=== PATIENT | female | born 1975 | race Asian ===

== ENCOUNTER 2024-03-07 11:52 | Emergency (ER) | payer OTHER ==
[2024-03-07 11:59] VITALS: RESP 16; TEMP 98.2; BMI 23.8
[2024-03-07] MEDS ORDERED: METOCLOPRAMIDE HCL INJECTION 10 MG/2 ML VIAL ONE (12:21)
[2024-03-07] MEDS ORDERED: IBUPROFEN 400 MG TABLET (FP) PO ONE (13:07)
[2024-03-07] MEDS: METOCLOPRAMIDE HCL INJECTION 10 MG/2 ML VIAL IVPUSH ONE (13:07)
[2024-03-07] MEDS: IBUPROFEN 400 MG TABLET (FP) PO ONE (13:09)
[2024-03-07 13:57] VITALS: BP 104/70; PULSE 72
== END 2024-03-07 14:22 | disposition home or self-care (01) ==
LOC: FER 11:52
PROC: 3E033GC Introduction of Other Therapeutic Substance into Peripheral Vein, Percutaneous Approach (ICD-10-PCS; principal; 2024-03-07)
DX: R51.9 Headache, unspecified (principal); R11.2 Nausea with vomiting, unspecified
CPT/HCPCS: 70450-TC; 99284-25